=== PATIENT | female | born 1955 | race African-American/Black ===

== ENCOUNTER 2018-09-17 11:23 | Emergency (ER) | payer MEDICAID ==
[~2018-09-17] VITALS: Ht 167.6 cm; Wt 56.7 kg
[2018-09-17 11:40] VITALS: BP 150/73
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
[2018-09-17] MEDS ORDERED: IBUPROFEN600 MG ORAL (13:12)
[2018-09-17] MEDS ORDERED: ROBAXIN-750750 MG PO (13:12)
--- NOTE | 2018-09-17 13:19 | Diagnostic Imaging Report ---
Indication: Back pain Comparison: None Findings: 3 views of the lumbar spine were obtained. No acute fracture or malalignment is identified. Vertebral body heights and disk spaces are well maintained. Posterior elements are unremarkable. Impression: No acute findings.
--- NOTE | 2018-09-17 13:19 | Diagnostic Imaging Report ---
Indication: Knee Pain 3 views of the left knee were obtained. Findings: No acute fracture, malalignment, or joint effusion are identified. Joint space is relatively well-maintained. Impression: Negative for acute injury
--- NOTE | 2018-09-17 13:21 | Diagnostic Imaging Report ---
Indication: Right shoulder pain Findings: 3 views of the right shoulder were obtained. No acute fractures, malalignment, erosions or periostitis are identified. Soft tissues are unremarkable. Impression: Negative for acute injury
[2018-09-17 13:43] VITALS: BP 133/70
--- NOTE | 2018-09-17 13:44 | NUR ---
ED Nurse Note: Patient is being discharged from medical care with prescriptions. Awake, alert and oriented x3. ID band were removed. Patient ambulated out with all personal belongings with steady gait.
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
== END 2018-09-17 13:45 | disposition home or self-care (01) ==
LOC: EMR 11:50
DX: S80.02XA Contusion of left knee, initial encounter (principal); V13.4XXA Pedal cycle driver injured in collision with car, pick-up truck or van in traffic accident, initial encounter; Y93.55 Activity, bike riding; Y92.410 Unspecified street and highway as the place of occurrence of the external cause; M54.5 Low back pain; M25.511 Pain in right shoulder
CPT/HCPCS: 72110; 99284